=== PATIENT | female | born 1975 | race Caucasian/White ===

== ENCOUNTER → 2017-02-22 | Outpatient (CLI) | payer OTHER ==
[~2017-02-22] MED LIST: ALBU8.5H5 INH; ALPR-475 PO; AMIT10TA PO; BUDE180A INH; CHLO1CAP PO; CHOL20002 PO; CLIN-60 PO; DICL100T PO; DIPH1TAB6 PO; ESCI10TA PO; LACT1CAP40 PO; LISI5TAB7 PO; MECL12.52 PO; MELA3TAB PO; METO25TA91 PO; MULT-516 PO; OMNIPAQUE 350 MG/ML, 100ML BOTTLE ONE; OXYC-302 PO; ROBITUSSIN PO; SUMA100T4 PO; VITAMIN C PO; [UNRECOGNIZED DRUG - OTHER] PO
== END | disposition home or self-care (01) ==
LOC: CFH 11:23
PROVIDERS: ATTEND Internal Medicine Gastroenterology
DX: K59.00 Constipation, unspecified (principal); N28.1 Cyst of kidney, acquired; K58.0 Irritable bowel syndrome with diarrhea
CPT/HCPCS: 74177; 82565; Q9967

== ENCOUNTER → 2018-06-20 | Outpatient (CLI) | payer OTHER ==
[~2018-06-20] MED LIST changes: -CHOL20002 PO; +CHOL200052 PO; -CLIN-60 PO; +CLIN150C14 PO; -MELA3TAB PO; +MELA3TAB2 PO; -OMNIPAQUE 350 MG/ML, 100ML BOTTLE ONE
== END | disposition home or self-care (01) ==
LOC: CVU 09:48
PROVIDERS: ATTEND Internal Medicine Cardiovascular Disease
DX: R09.89 Other specified symptoms and signs involving the circulatory and respiratory systems (principal); I10 Essential (primary) hypertension; N28.89 Other specified disorders of kidney and ureter; R42 Dizziness and giddiness
CPT/HCPCS: 93880

== ENCOUNTER 2018-10-08 07:51 | Emergency (ER) | payer OTHER ==
[~2018-10-08] VITALS: Ht 170.2 cm; Wt 69.9 kg
--- NOTE | 2018-10-08 08:20 | NUR ---
PT AMBULATORY WITH STEADY GAIT TO ROOM.
--- NOTE | 2018-10-08 08:21 | NUR ---
TO ROOM 19
--- NOTE | 2018-10-08 08:37 | NUR ---
43 Y/O FEMALE PRESENTS TO ED WITH C/O COUGH/ FLU LIKE SX. "I HAVE A WEAK IMMUNE SYSTEM AND AM ON PREDNISONE, I DON'T FEEL LIKE I'M GETTING MUCH BETTER. I'VE HAD A TOTAL OF 3 SURGERIES ON MY SINUSES. I HAVE CHRONIC SINUSITIS WITH ABX OFF AND ON. I'M ON CEFDINIR NOW AND I FEEL LIKE I'M GETTING WORSE. I HAVE BODY ACHES." PT PLACED ON CONT PULSE OX,NIBP. EDPA BEDSIDE. NO C/O N/V/D, TRAUMA, SYNCOPE, CP, SOB.
--- NOTE | 2018-10-08 09:03 | NUR ---
PT BACK FROM IMAGING.
[2018-10-08 09:14] LABS: BASOPHILS # (AUTO) 0.01 x10^3/uL (0-0.1); BASOPHILS % (AUTO) 0 % (0-1); EOSINOPHILS # (AUTO) 0.08 x10^3/uL (0-0.4); EOSINOPHILS % (AUTO) 2 % (1-7); LYMPHOCYTES # (AUTO) 0.58 x10^3/uL (1-3.4); LYMPHOCYTES % (AUTO) 12 % (22-44); MD NO; MEAN CORPUSCULAR HEMOGLOBIN 29.2 pg (27.0-34.8); MEAN CORPUSCULAR HGB CONC 33.9 g/dL (32.4-35.8); MEAN PLATELET VOLUME 9.2 fL (7.4-10.4); MONOCYTES % (AUTO) 6 % (2-9); NEUTROPHILS # (AUTO) 3.92 x10^3/uL (1.8-6.8); NEUTROPHILS % (AUTO) 80 % (42-75); PLATELET COUNT 219 x10^3/uL (130-400); RED BLOOD COUNT 4.56 x10^6/uL (3.82-5.3)
[2018-10-08 09:16] LABS: RAPID INFLUENZA A Negative (Negative); RAPID INFLUENZA B Negative (Negative)
[2018-10-08 09:28] LABS: ALBUMIN 3.8 g/dL (3.4-5.0); ANION GAP 8 mmol/L (5-15); CALCIUM 8.5 mg/dL (8.5-10.1); CHLORIDE 105 mmol/L (98-107)
[2018-10-08 09:30] LABS: CREATININE 0.79 mg/dL (0.55-1.02)
[2018-10-08 09:38] VITALS: BP 146/94
--- NOTE | 2018-10-08 09:39 | NUR ---
PT RESTING ON GURNEY. NO ACUTE DISTRESS NOTED. PT ALSO STATES "I'VE ALSO HAD A HEADACHE LATELY." EDMD BEDSIDE. NO NEEDS REQUESTED AT THIS TIME.
--- NOTE | 2018-10-08 10:12 | NUR ---
Patient/Caregiver given discharge instructions and they have confirmed that they understand the instructions. Patient ambulatory with steady gait. PT LEFT WITH ALL PERSONAL BELONGINGS.
== END 2018-10-08 10:14 | disposition home or self-care (01) ==
LOC: ED 09:09
DX: J01.00 Acute maxillary sinusitis, unspecified (principal); J45.909 Unspecified asthma, uncomplicated; N28.9 Disorder of kidney and ureter, unspecified
CPT/HCPCS: 36415; 71046; 80048; 82040; 85025; 87400; 99284